=== PATIENT | female | born 1945 | race Hispanic/Latino ===

== ENCOUNTER 2017-08-12 03:28 | Emergency (ER) | payer MEDICARE ==
[~2017-08-12 03:28] MED LIST: ASPI-555 PO; CIPR-245 PO; GLYB5TAB8 PO; MECL12.585 PO; METF10004 PO; VALS80TA2 PO
[2017-08-12] MEDS ORDERED: ACETAMINOPHEN 325 MG TAB ONE (03:56)
[2017-08-12] MEDS ORDERED: LIDOCAINE 5% TOPICAL PATCH TP ONE (03:56)
[2017-08-12] MEDS ORDERED: OSELTAMIVIR PHOSPHATE 75 MG CAP ONE (03:57)
== END 2017-08-12 04:14 | disposition home or self-care (01) ==
LOC: EDH 03:28
DX: M54.31 Sciatica, right side (principal); J11.1 Influenza due to unidentified influenza virus with other respiratory manifestations; M19.90 Unspecified osteoarthritis, unspecified site; E11.9 Type 2 diabetes mellitus without complications; I10 Essential (primary) hypertension; Z98.890 Other specified postprocedural states

== ENCOUNTER 2018-07-21 09:31 | Emergency (ER) | payer MEDICARE ==
[~2018-07-21 09:31] MED LIST changes: +CANA1TAB2 PO; +CARV6.25 PO; +METF-446 PO; -METF10004 PO
[2018-07-21] MEDS ORDERED: ONDANSETRON 4 MG TABLET ONE (10:38)
[2018-07-21] MEDS ORDERED: HYDROCODONE/ACETAMINOPHEN 10/325 MG TAB ONE (10:39)
== END 2018-07-21 12:15 | disposition home or self-care (01) ==
LOC: EDH 09:31
DX: S00.83XA Contusion of other part of head, initial encounter (principal); S20.212A Contusion of left front wall of thorax, initial encounter; E11.9 Type 2 diabetes mellitus without complications; I10 Essential (primary) hypertension; Z88.6 Allergy status to analgesic agent; Z87.891 Personal history of nicotine dependence; W01.0XXA Fall on same level from slipping, tripping and stumbling without subsequent striking against object, initial encounter; Y93.01 Activity, walking, marching and hiking; Y92.89 Other specified places as the place of occurrence of the external cause; Y99.8 Other external cause status
CPT/HCPCS: 70450; 70486; 71101; 99284; Q0162

== ENCOUNTER 2020-06-19 05:54 | Day surgery (SDC) | payer MEDICARE ==
[~2020-06-19 05:54] MED LIST changes: -ASPI-555 PO; -CANA1TAB2 PO; -CARV6.25 PO; -CIPR-245 PO; +FURO20TA4 PO; -GLYB5TAB8 PO; +LOSA100T58 PO; -MECL12.585 PO; +NATE120T9 PO; +POTA-79 PO; -VALS80TA2 PO
[2020-06-19] MEDS ORDERED: SODIUM CHLORIDE 0.9% 1000ML 1,000 ML IV ONE (06:14)
[2020-06-19] MEDS ORDERED: PROPOFOL 10 MG/ML 20ML VIAL IV ONE (07:36)
[2020-06-19] MEDS ORDERED: LIDOCAINE HCL 1% 20 ML VIAL ONE (07:36)
[2020-06-19] MEDS ORDERED: MIDAZOLAM HCL 1 MG/ML 2ML VIAL ONE (07:36)
[2020-06-19 08:28] VITALS: BP 114/40
[2020-06-19 08:33] VITALS: BP 131/52
[2020-06-19 08:38] VITALS: BP 139/55
== END 2020-06-19 09:13 | disposition home or self-care (01) ==
LOC: ENDO 05:54 → DAH 05:54 → ENDO 09:13
PROVIDERS: ATTEND Internal Medicine Gastroenterology
DX: R13.10 Dysphagia, unspecified (principal); K21.00 Gastro-esophageal reflux disease with esophagitis, without bleeding; K29.70 Gastritis, unspecified, without bleeding; K44.9 Diaphragmatic hernia without obstruction or gangrene; G47.30 Sleep apnea, unspecified; I49.5 Sick sinus syndrome; E78.5 Hyperlipidemia, unspecified; E11.22 Type 2 diabetes mellitus with diabetic chronic kidney disease; N18.9 Chronic kidney disease, unspecified; F41.9 Anxiety disorder, unspecified; Z86.010 Personal history of colon polyps; Z95.0 Presence of cardiac pacemaker; G47.33 Obstructive sleep apnea (adult) (pediatric); Z90.49 Acquired absence of other specified parts of digestive tract; Z79.899 Other long term (current) drug therapy; Z20.828 Contact with and (suspected) exposure to other viral communicable diseases
CPT/HCPCS: 43239; 82948 ×2; 88305; 88342; 93005; A4221; A4222; A4223; A4606; A4620; A4657; A4663; C9803; J2250; J2704; J7030; U0003

== ENCOUNTER 2021-01-06 08:13 | Emergency (ER) | payer MEDICARE ==
[~2021-01-06] VITALS: Ht 162.6 cm; Wt 83.0 kg
[~2021-01-06 08:13] MED LIST changes: -POTA-79 PO
[2021-01-06 08:56] VITALS: BP 185/60
[2021-01-06] MEDS ORDERED: ONDANSETRON HCL 4 MG/2 ML VIAL IVP SCH (09:15)
[2021-01-06] MEDS ORDERED: MORPHINE 5 MG/ML VIAL (5MG OR GREATER DOSE) IM SCH (09:15)
[2021-01-06 09:45] LABS: BASOPHILS % (AUTO) 0.3 % (0.0-5.0); HEMATOCRIT 29.4 % (36-48); LYMPHOCYTES % (AUTO) 31.6 % (21.0-51.0); MEAN CORPUSCULAR HGB CONC 29.6 g/dL (32.0-36.0); MEAN CORPUSCULAR VOLUME 64.2 fL (79-99); MONOCYTES % (AUTO) 6.2 % (3.0-13.0); NEUTROPHILS % (AUTO) 60.3 % (40.0-77.0); PLATELET COUNT (AUTO) 267 K/uL (130-400); RED BLOOD CELL COUNT(AUTO) 4.58 MIL/uL (4.00-5.50); RED CELL DISTRIBUTION WIDTH 16.8 % (11.0-15.5); WHITE BLOOD COUNT (AUTO) 6.9 K/uL (4.8-10.8)
[2021-01-06 09:50] LABS: CREATININE 0.7 mg/dL (0.5-1.5); POTASSIUM 4.2 mmol/L (3.5-5.1)
[2021-01-06 09:56] VITALS: BP 184/98
[2021-01-06 09:59] LABS: ALBUMIN 3.6 g/dL (3.5-5.0); BILIRUBIN,TOTAL 0.4 mg/dL (0.2-1.0)
[2021-01-06 10:00] LABS: APPEARANCE,URINE Clear (CLEAR); BILIRUBIN,URINE Negative (NEGATIVE); COLOR,URINE Yellow (YELLOW); GLUCOSE, URINE (UA) >=1000 mg/dL (NEGATIVE); KETONES,URINE 15 mg/dL (NEGATIVE); LEUKOCYTE ESTERASE ,URINE Negative (NEGATIVE); NITRATE,URINE Negative (NEGATIVE); OCCULT BLOOD,URINE Negative (NEGATIVE); PROTEIN,URINE POS 1+ mg/dL (NEGATIVE); UROBILINOGEN,URINE 0.2 mg/dL (0.2-1.0)
[2021-01-06 10:25] VITALS: BP 140/74
[2021-01-06 10:29] LABS: RBC,URINE 0-1 /HPF (0-1)
[2021-01-06 10:30] LABS: BACTERIA,URINE Rare /HPF (None Seen); WBC,URINE 0-1 /HPF (0-1)
[2021-01-06 11:13] VITALS: BP 153/53
[2021-01-06 13:41] VITALS: BP 146/56
[2021-01-06] MEDS ORDERED: CYCL10 PO (14:01)
== END 2021-01-06 14:09 | disposition home or self-care (01) ==
LOC: EDH 08:13
DX: M47.814 Spondylosis without myelopathy or radiculopathy, thoracic region (principal); M54.6 Pain in thoracic spine; E11.65 Type 2 diabetes mellitus with hyperglycemia; E78.5 Hyperlipidemia, unspecified; I10 Essential (primary) hypertension; Z79.84 Long term (current) use of oral hypoglycemic drugs; E66.9 Obesity, unspecified; Z88.5 Allergy status to narcotic agent; Z95.0 Presence of cardiac pacemaker; Z79.899 Other long term (current) drug therapy
CPT/HCPCS: 36415; 71250; 80053; 81001; 83690; 84484; 85025; 85378; 93005; 96372; 96374; 99285; J2270; J2405

== ENCOUNTER → 2022-04-21 | Outpatient (CLI) | payer MEDICARE ==
[~2022-04-21] MED LIST changes: +CYCL10TA16 PO; -FURO20TA4 PO
[2022-04-21 12:31] LABS: BASOPHILS % (AUTO) 0.5 % (0.0-5.0); EOSINOPHILS % (AUTO) 2.2 % (0.0-8.0); HEMATOCRIT 29.5 % (36-48); LYMPHOCYTES % (AUTO) 48.2 % (21.0-51.0); MEAN CORPUSCULAR HEMOGLOBIN 17.8 pg (27.0-33.0); MEAN CORPUSCULAR HGB CONC 29.5 g/dL (32.0-36.0); MEAN CORPUSCULAR VOLUME 60.3 fL (79-99); MONOCYTES % (AUTO) 7.3 % (3.0-13.0); NEUTROPHILS % (AUTO) 41.4 % (40.0-77.0); PLATELET COUNT (AUTO) 299 K/uL (130-400); RED BLOOD CELL COUNT(AUTO) 4.89 MIL/uL (4.00-5.50); RED CELL DISTRIBUTION WIDTH 18.9 % (11.0-15.5); WHITE BLOOD COUNT (AUTO) 7.6 K/uL (4.8-10.8)
== END | disposition home or self-care (01) ==
LOC: LAB 10:11
PROVIDERS: ATTEND Physician Assistant
DX: I10 Essential (primary) hypertension (principal)
CPT/HCPCS: 36415; 85025

== ENCOUNTER → 2023-05-15 | Outpatient (CLI) | payer MEDICARE ==
[~2023-05-15] MED LIST changes: +IOHEXOL 350 MG/ML 100ML INFUS..BTL IV ONE; -LOSA100T58 PO; +LOSA100T59 PO
== END | disposition home or self-care (01) ==
LOC: RAH 08:03
PROVIDERS: ATTEND Family Medicine
DX: K44.9 Diaphragmatic hernia without obstruction or gangrene (principal); R10.9 Unspecified abdominal pain; M47.815 Spondylosis without myelopathy or radiculopathy, thoracolumbar region; I70.0 Atherosclerosis of aorta; N85.2 Hypertrophy of uterus
CPT/HCPCS: 74178; Q9967

== ENCOUNTER → 2024-02-01 | Outpatient (CLI) | payer MEDICARE ==
[~2024-02-01] MED LIST changes: -IOHEXOL 350 MG/ML 100ML INFUS..BTL IV ONE
[2024-02-01 12:12] LABS: BASOPHILS # (AUTO) 0.04 K/uL (0.00-0.20); BASOPHILS % (AUTO) 0.6 % (0.0-5.0); EOSINOPHILS # (AUTO) 0.07 K/uL (0.00-0.70); HEMATOCRIT 26.9 % (36-48); IMMATURE GRANULOCYTE ABSOLUTE 0.03 K/uL (0-1); LYMPHOCYTES # (AUTO) 2.3 K/uL (1.0-4.8); MEAN CORPUSCULAR HEMOGLOBIN 18.5 pg (27.0-33.0); MEAN CORPUSCULAR HGB CONC 29.4 g/dL (32.0-36.0); MEAN CORPUSCULAR VOLUME 62.9 fL (79-99); MONOCYTES # (AUTO) 0.4 K/uL (0.1-1.0); MONOCYTES % (AUTO) 5.2 % (3.0-13.0); NEUTROPHILS # (AUTO) 4.2 K/uL (1.8-7.7); NEUTROPHILS % (AUTO) 59.8 % (40.0-77.0); PLATELET COUNT (AUTO) 307 K/uL (130-400); RED BLOOD CELL COUNT(AUTO) 4.28 MIL/uL (4.00-5.50); WHITE BLOOD COUNT (AUTO) 7.1 K/uL (4.8-10.8)
[2024-02-01 12:21] LABS: CREATININE 1.2 mg/dL (0.5-1.0); POTASSIUM 4.7 mmol/L (3.5-5.1)
== END | disposition home or self-care (01) ==
LOC: LAB 09:34
PROVIDERS: ATTEND Physician Assistant
DX: I10 Essential (primary) hypertension (principal)
CPT/HCPCS: 36415; 80048; 85025

== ENCOUNTER 2025-01-04 14:39 | Observation (INO) | payer MEDICARE ==
[~2025-01-04] VITALS: Ht 152.4 cm; Wt 75.6 kg
--- NOTE | 2025-01-04 15:09 | ERN ---
ED Note History of Present Illness Stated Complaint: HEART PAP Chief Complaint: Palpitations Time Seen by MD: 14:42 Dictation: PATIENT IS A 79-YEAR-OLD FEMALE COMING IN TODAY WITH COMPLAINTS OF PALPITATIONS ONSET LAST NIGHT WHILE SHE WAS ASLEEP. SAID IT WOKE HER UP. SHE STATES SHE HAS A PACEMAKER WERE THE BATTERY IS GETTING READY TO RUN OUT AND WE WILL NEED REPLACING. SHE IS A PATIENT OF DR. CHAUDHARY AND WAS TOLD TO COME TO THE EMERGENCY ROOM. CHEST PAIN AT THIS TIME NO BACK PAIN NO SOB. Allergies: Coded Allergies: codeine (Unverified Allergy, Mild, UNKNOWN, 03/07/14) PT STATES OF DIARRHEA WITH CODEINE SULFATE Home Meds Active Scripts Cyclobenzaprine HCl (Flexeril) 10 Mg Tab, 5 MG PO BID for BACK PAIN for 7 Days, #15 TAB Prov:ANISH LIVE MD 01/06/21 Metformin HCl (Metformin HCl) 1,000 Mg Tablet, 1000 MG PO BID, #60 TAB Prov:CHUCHO BRIONES MD 01/13/15 Reported Medications Losartan Potassium (Losartan Potassium) 100 Mg Tablet, 100 MG PO DAILY, TAB 06/18/20 Nateglinide (Nateglinide) 120 Mg Tablet, 120 MG PO TID, TAB 06/18/20 Past Medical History Past Medical History: Arthritis, Diabetes-Type II, Hypertension Additional Past Medical Hx: THELASSEMIA Surgical History: Cholecystectomy Surgical History Other: HERNIA REPAIR, History: Not Applicable RN Note Reviewed/Agreed w/PFSH: Yes Review of System Dictation CONSTITUTIONAL: NEGATIVE EXCEPT FOR HPI HEAD/FACE: NEGATIVE EXCEPT FOR HPI EENT: NEGATIVE EXCEPT FOR HPI RESPIRATORY: NEGATIVE EXCEPT FOR HPI PALPITATIONS GASTROINTESTINAL/ABDOMINAL: NEGATIVE EXCEPT FOR HPI GENITOURINARY: NEGATIVE EXCEPT FOR HPI MUSCULOSKELETAL: NEGATIVE EXCEPT FOR HPI INTEGUMENTARY: NEGATIVE EXCEPT FOR HPI NEUROLOGICAL/PSYCH: NEGATIVE EXCEPT FOR HPI HEMATOLOGIC/LYMPHATIC: NEGATIVE EXCEPT FOR HPI ALL SYSTEMS NEGATIVE, EXCEPT NOTED ABOVE. 13 POINT REVIEW OF SYSTEMS ASSESSED AND ALL NEGATIVE EXCEPT FOR ABOVE. Initial Vital Sign VS Vital Signs Date Time Temp Pulse Resp B/P (MAP) Pulse Ox O2 Delivery O2 Flow Rate FiO2 01/04/25 15:07 98.6 83 16 183/80 99 Room Air 01/04/25 16:58 0 21 Physical Exam Dictation VITAL SIGNS REVIEWED GENERAL APPEARANCE: ALERT, ORIENTED X 3, NO ACUTE DISTRESS, WELL DEVELOPED, NOURISHED. OBESE HEAD AND FACE: NON-TRAUMATIC. EYES: PERRL, PINK CONJUNCTIVAS, EYELID NO TRAUMA, ANTERIOR CHAMBER WITH ARCUS SENILIS. EARS: PINNAS INTACT AND NO SIGNS OF TRAUMA OR ERYTHEMA EAR CANALS CLEAR AND NO DISCHARGE TM NO ERYTHEMA NOSE: NO DISCHARGE, NO BLEEDING. OROPHARYNX: MOUTH NORMAL, TONGUE PINK, PHARYNX CLEAR,NO ERYTHEMA, TONSILS NO EXUDATES, NO ABSCESSES NOTED, MUCOUS MEMBRANE MOIST NECK: SUPPLE, NON-TENDER, NO THYROMEGALY, NO MASSES, NO JVD, NO BRUITS BREAST:DEFERRED CHEST:NO TENDERNESS, NO CREPITUS, NO PARADOXICAL MOVEMENT, NO RETRACTIONS LUNGS:CLEAR, WELL-VENTILATED, SYMMETRIC, NO RALES, NO WHEEZING, NO RHONCHI, NO STRIDOR, GOOD BREATH SOUNDS BILATERALLY HEART: REGULAR RATE, REGULAR RHYTHM, NO MURMUR, NO GALLOPS VASCULAR: TRACE PERIPHERAL EDEMA, ABDOMEN: SOFT, POSITIVE BOWEL SOUNDS, NONDISTENDED, NO GUARDING, NONTENDER, NO REBOUND, NO MASSES NO HEPATOMEGALY, NO SPLENOMEGALY, NO VALDES'S SIGN, NO HERNIAS. RECTAL: DEFERRED GENITAL: DEFERRED NEUROLOGICAL: NORMAL SPEECH, MOTOR FUNCTION INTACT, SENSORY FUNCTION INTACT MUSCULOSKELETAL: NECK NONTENDER, FULL RANGE OF MOTION, BACK NONTENDER, FULL RANGE OF MOTION, EXTREMITIES: NONTENDER, FULL RANGE OF MOTION SKIN: COLOR PINK, DRY, NO TURGOR, NO RASH, NO LACERATIONS, NO ABRASIONS, NO CONTUSIONS. LYMPHATIC: DEFERRED Results (Laboratory/Radiology) Laboratory/Radiology Laboratory Tests Test 01/04/25 15:32 White Blood Count 6.8 K/uL (4.8-10.8) Red Blood Count 4.65 MIL/uL (4.00-5.50) Hemoglobin 8.6 g/dL (12.0-16.0) L Hematocrit 29.0 % (36-48) L Mean Corpuscular Volume 62.4 fL (79-99) L Mean Corpuscular Hemoglobin 18.5 pg (27.0-33.0) L Mean Corpuscular Hemoglobin Concent 29.7 g/dL (32.0-36.0) L Red Cell Distribution Width 16.1 % (11.0-15.5) H Platelet Count 277 K/uL (130-400) Mean Platelet Volume 10.1 fL (7.5-10.5) Immature Granulocyte % (Auto) 0.3 % (0-1) Neutrophils (%) (Auto) 49.0 % (40.0-77.0) Lymphocytes (%) (Auto) 42.8 % (21.0-51.0) Monocytes (%) (Auto) 6.6 % (3.0-13.0) Eosinophils (%) (Auto) 0.9 % (0.0-8.0) Basophils (%) (Auto) 0.4 % (0.0-5.0) Neutrophils # (Auto) 3.4 K/uL (1.8-7.7) Lymphocytes # (Auto) 2.9 K/uL (1.0-4.8) Monocytes # (Auto) 0.5 K/uL (0.1-1.0) Eosinophils # (Auto) 0.06 K/uL (0.00-0.70) Basophils # (Auto) 0.03 K/uL (0.00-0.20) Absolute Immature Granulocyte (auto 0.02 K/uL (0-1) Nucleated Red Blood Cells 0.0 % (0.0-0.19) Red Blood Cell Morphology See comments Sodium Level 137 mmol/L (136-145) Potassium Level 3.7 mmol/L (3.5-5.1) Chloride Level 101 mmol/L (101-111) Carbon Dioxide Level 28 mmol/L (21-32) Blood Urea Nitrogen 31 mg/dL (7-18) H Creatinine 1.1 mg/dL (0.5-1.0) H Glomerular Filtration Rate Calc 50 mL/min (>90) Random Glucose 268 mg/dL (70-105) H Total Calcium 9.3 mg/dL (8.5-10.1) Magnesium Level 1.40 mg/dL (1.80-2.40) L Troponin I High Sensitivity 45 ng/L (4-50) B-Type Natriuretic Peptide 787 pg/mL (0-100) H Labs Reviewed?: Yes EKG Comment: EKG SINUS RHYTHM/HEART RATE 80/T-WAVE INVERSION V4 V1 AXIS NORMAL ED Course ED Course Orders Procedure Category Date Status Time Cbc With Differential LAB 01/04/25 Complete 15:06 B-Type Natriuretic LAB 01/04/25 Complete Peptide 15:06 Chest 1vw RAD 01/04/25 Resulted 15:06 12 Lead Ekg Tracing- EKG 01/04/25 Complete Technical 15:06 Magnesium LAB 01/04/25 Complete 15:06 Troponin I High LAB 01/04/25 Complete Sensitivity 15:06 Basic Metabolic Panel LAB 01/04/25 Complete 15:06 Pacemaker CPOE 01/04/25 Transmitted Interrogation (Er) 15:06 Magnesium 2gm Premix PHA 01/04/25 In Process 50ml (Magnesium 2gm 16:30 Current Medications Medications (Trade) Dose Ordered Sig/Amanda Route PRN Reason Start Time Stop Time Status Last Admin Dose Admin Magnesium Sulfate 50 ml @ 0 mls/hr PROTOCOL IV 01/04/25 16:30 02/03/25 16:29 01/04/25 16:43 Vital Signs Date Time Temp Pulse Resp B/P (MAP) Pulse Ox O2 Delivery O2 Flow Rate FiO2 01/04/25 16:58 77 17 157/64 98 Room Air* 0 21 01/04/25 15:07 98.6 83 16 183/80 99 Room Air 1725/PATIENT HAS HYPOMAGNESEMIA ACUTE KIDNEY INJURY, UNCONTROLLED DIABETES. SHE HAS NOT HAVE ANY CHEST PAINS OR PALPITATIONS AT THIS TIME. WE HAVE ALREADY CONTACTED OFFICE FOR INTERROGATION OF HER PACEMAKER. WE WILL PLACE PATIENT IN THE HOSPITAL FOR FURTHER EVALUATION AND CARDIAC WORKUP. PATIENT AGREES HEART Score Response (Comments) Value EKG: Repolarization changes 1 Age: > 65yrs (+2) 2 Risk Factors: 3+ risk factors (+2) 2 Initial Troponin: Normal limit (0) 0 Total 5 Medical Decision Making MDM MDM: DIFFERENTIAL DIAGNOSIS PACEMAKER BATTERY FAILURE, ACS/AMI/CHF/ELECTROLYTE IMBALANCE/DEHYDRATION RATIONALE: TESTS CONSIDERED AND ORDERED SECONDARY TO SHARED DECISION MAKING IN CLUDE: LABS, ECG AND RADIOLOGY PREVIOUS OUTSIDE RECORDS REVIEWED: OLD ER VISITS. RISK OF COMPLICATION AND/OR MORBIDITY OR MORTALITY OF PATIENT MANAGEMENT: [id number] MEDICATIONS-PER MEDICATION RECONCILIATION NEED FOR HOSPITALIZATION: PATIENT DOES MEET CRITERIA FOR HOSPITALIZATION. PATIENT WILL BE ADMITTED FOR TIFFANI, UNCONTROLLED DIABETES PALPITATIONS AND HIGH- RISK CHEST PAIN NEED FOR EMERGENCY MAJOR/MINOR SURGERY: NO THERE ARE NO SOCIAL CONCERNS WITH THIS PATIENT. PRESCRIPTION DRUG MANAGEMENT PRESCRIPTIONS WILL INCLUDE SYMPTOMATIC CARE PATIENT'S PRIOR EXTERNAL MEDICAL RECORDS FROM OTHER ER VISITS WERE REVIEWED BY ME INDICATED. PRIOR TESTING AND RESULTS FROM PREVIOUS VISITS WERE REVIEWED. PRIOR TESTS WERE TAKEN INTO ACCOUNT WITH MEDICAL DECISION MAKING AND RESOURCE UTILIZATION, INDEPENDENT HISTORIAN/HISTORIANS WERE USED TO OBTAIN COMPLETE MEDICAL HISTORY. I INDEPENDENTLY INTERPRETED THE TEST THAT WERE PERFORMED, RESULTS WERE REVIEWED BY ME AND CONSIDERED FINDINGS ON RADIOLOGY IF ORDERED. MEDICAL MANAGEMENT AND EXAMINATION INTERPRETATION DISCUSSIONS WERE HAD BY ME WITH OTHER QUALIFIED HEALTHCARE PROFESSIONALS INDICATED FOR THE PATIENT'S CARE. DX & DISP Disposition: Inpatient Decision to Admit Time: 17:30 Departure Impression: Primary Impression: Palpitations Additional Impressions: [id number]-[id number] kidney injury, Fluid overload, Hypomagnesemia, Pacemaker complications Condition: Stable Referrals: FRANCES HENNING MD (PCP) Time of Disposition: 17:30 I have reviewed the case, and I agree with, Diagnosis and Plan MAGNO MALDONADO NP Jan 04, 2025 15:09
[2025-01-04 15:38] LABS: BASOPHILS # (AUTO) 0.03 K/uL (0.00-0.20); BASOPHILS % (AUTO) 0.4 % (0.0-5.0); EOSINOPHILS # (AUTO) 0.06 K/uL (0.00-0.70); EOSINOPHILS % (AUTO) 0.9 % (0.0-8.0); IMMATURE GRANULOCYTE ABSOLUTE 0.02 K/uL (0-1); LYMPHOCYTES # (AUTO) 2.9 K/uL (1.0-4.8); LYMPHOCYTES % (AUTO) 42.8 % (21.0-51.0); MEAN CORPUSCULAR HEMOGLOBIN 18.5 pg (27.0-33.0); MEAN CORPUSCULAR HGB CONC 29.7 g/dL (32.0-36.0); MEAN CORPUSCULAR VOLUME 62.4 fL (79-99); MONOCYTES # (AUTO) 0.5 K/uL (0.1-1.0); MONOCYTES % (AUTO) 6.6 % (3.0-13.0); NEUTROPHILS # (AUTO) 3.4 K/uL (1.8-7.7); PLATELET COUNT (AUTO) 277 K/uL (130-400); RED BLOOD CELL COUNT(AUTO) 4.65 MIL/uL (4.00-5.50); RED CELL DISTRIBUTION WIDTH 16.1 % (11.0-15.5); WHITE BLOOD COUNT (AUTO) 6.8 K/uL (4.8-10.8)
--- NOTE | 2025-01-04 15:50 | EKG ---
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
--- NOTE | 2025-01-04 15:53 | HMCIMG ---
CHEST 1VW REASON: SHORTNESS COMPARISON: 01/06/2021 FINDINGS: Single view of the chest was obtained. Lungs are clear. Heart size is normal. There is no pulmonary vascular congestion. Mediastinum and bony thorax appear unremarkable. There is a bipolar pacemaker, unchanged. IMPRESSION: 1. No acute finding, no change.
[2025-01-04 15:55] LABS: CREATININE 1.1 mg/dL (0.5-1.0); MAGNESIUM 1.4 mg/dL (1.80-2.40); POTASSIUM 3.7 mmol/L (3.5-5.1)
--- NOTE | 2025-01-04 16:10 | NUR ---
AT 1610 CALLED [facility] AND SPOKE TO LISA TO REQUEST INTEROGATION OF THE DEVICE. PER LISA, SHE WILL PAGE MURIEL SEE PENDING REP TO EVAL.
--- NOTE | 2025-01-04 16:19 | NUR ---
SPOKE TO CAROLE SEE AND HE STATED THAT THEY DO NOT HAVE ANY REPS IN THE [place], ADVISED REP THAT I WOULD CALL HEART CLINIC TO INFORM AND SEE WHAT OTHER RECOMMENDATION ARE NEEDED AT THIS TIME.
[2025-01-04 16:22] LABS: B-TYPE NATRIURETIC PEPTIDE 787 pg/mL (0-100)
[2025-01-04] MEDS: MAGNESIUM 2GM PREMIX 50ML 50 ML IV SCH (16:43)
--- NOTE | 2025-01-04 16:55 | NUR ---
CALLED DOCTOR [facility] OFFICE SPOKE TO BENY SMITH AND SHE INDICATED SHE ADVISED DOCTOR MCKEON AND SHE ATTEMPTED TO NOTIFY THE LOCAL REP THAT COMES TO INTERROGRATE HOWEVER THEY ARE UNABLE TO MAKE IT AT THIS TIME.
--- NOTE | 2025-01-04 16:57 | NUR ---
PENDING TO SEE WHAT FURTHER EVALUATION NEEDS TO BE MADE
--- NOTE | 2025-01-04 18:36 | HP ---
[facility] HISTORY AND PHYSICAL Date of Service: Jan 04, 2025 Time of Service: 18:36 FRANCES HENNING MD (PCP) Attending/supervising physician: Dr. Hope and Dr. Ángel De Jesus HISTORY OF PRESENT ILLNESS: Mrs. Villegas is a 79-year-old female with history of DM type 2, HTN, Arthritis, thalassemia who presented to [facility] for evaluation of palpitations onset last night while she was asleep. The patient reported that she has a pacemaker that is due for battery replacement. She is patient of Dr. Goetz and was told to come to the emergency room. On arrival to ED the patient denied chest pain, back pain, shortness of breath, any other pain, problem or concern. EKG: Sinus rhythm, heart rate 80, nonspecific T abnormalities, diffuse leads. Chest x-ray: No acute finding. Troponin WNL, BNP [address] Nieto's office for interrogation of her pacemaker. In ED the patient received magnesium. ED provider request patient be admitted with a diagnosis of palpitation, acute on chronic kidney injury, fluid overload, hypomagnesemia, pacemaker complications for further evaluation and cardiac workup. I assessed the patient in ED 5. No family member at bedside. Patient reports she has not seen her PCP in person for a while because of fear of COVID. Patient reports that she calls her PCP when she needs something. I informed the patient of labs, diagnostics, and plan of care. The patient had multiple questions. The patient is slow to understand and forgetful. I repeated information multiple times already provided. She verbalized understanding and is in agreement with the plan. Plan and assessment are listed below. REVIEW OF SYSTEMS 12-point ROS reviewed with patient. All pertinent positives mentioned above. Otherwise negative, noncontributory, non-pertinent. PAST MEDICAL HISTORY: As mentioned above PAST SURGICAL HISTORY: Cholecystectomy Hernia repair PAST SOCIAL HISTORY: Patient denied: Alcohol, tobacco, illicit drug use FAMILY HISTORY: Lives with family Coded Allergies: codeine (Unverified Allergy, Mild, UNKNOWN, 03/07/14) PT STATES OF DIARRHEA WITH CODEINE SULFATE PHYSICAL EXAM GENERAL APPEARANCE: The patient is awake, alert, and oriented, in no acute cardiopulmonary distress. NEUROLOGICAL: Cranial nerves II-XII grossly intact. Motor is 5/5 in bilateral upper and lower extremities proximal to distal. No sensory deficits. HEENT: Face is symmetric. Pupils are equal and reactive. Extraocular movements are intact. NECK: Supple. No JVD. No thyromegaly. No submental, submandibular, pre-/postauricular, occipital or supraclavicular lymphadenopathy. CHEST: Normal chest expansion. No Telemetry. LUNGS: Absence of any rales, rhonchi or any wheezing. CARDIOVASCULAR: Regular. S1 and S2 normal. No appreciable rubs, murmurs or gallops. ABDOMEN: Soft, nontender, and nondistended. There is no rebound, voluntary guarding, or rigidity. : Deferred. No Adam. EXTREMITIES: Non-edematous and not cyanotic. No clubbing. Good capillary refill. SKIN: No skin breakdown. Vital Sign (Last 24 Hours) 01/04/25 18:05 Temp 98.4 Pulse 78 Resp 17 B/P (MAP) 135/67 Pulse Ox 95 O2 Delivery Room Air* O2 Flow Rate 0 FiO2 21 LABS: Laboratory: Test 01/04/25 15:32 Range/Units White Blood Count 6.8 4.8-10.8 K/uL Red Blood Count 4.65 4.00-5.50 MIL/uL Hemoglobin 8.6 L 12.0-16.0 g/dL Hematocrit 29.0 L 36-48 % Mean Corpuscular Volume 62.4 L 79-99 fL Mean Corpuscular Hemoglobin 18.5 L 27.0-33.0 pg Mean Corpuscular Hemoglobin Concent 29.7 L 32.0-36.0 g/dL Red Cell Distribution Width 16.1 H 11.0-15.5 % Platelet Count 277 130-400 K/uL Mean Platelet Volume 10.1 7.5-10.5 fL Immature Granulocyte % (Auto) 0.3 0-1 % Neutrophils (%) (Auto) 49.0 40.0-77.0 % Lymphocytes (%) (Auto) 42.8 21.0-51.0 % Monocytes (%) (Auto) 6.6 3.0-13.0 % Eosinophils (%) (Auto) 0.9 0.0-8.0 % Basophils (%) (Auto) 0.4 0.0-5.0 % Neutrophils # (Auto) 3.4 1.8-7.7 K/uL Lymphocytes # (Auto) 2.9 1.0-4.8 K/uL Monocytes # (Auto) 0.5 0.1-1.0 K/uL Eosinophils # (Auto) 0.06 0.00-0.70 K/uL Basophils # (Auto) 0.03 0.00-0.20 K/uL Absolute Immature Granulocyte (auto 0.02 0-1 K/uL Nucleated Red Blood Cells 0.0 0.0-0.19 % Red Blood Cell Morphology See comments Sodium Level 137 136-145 mmol/L Potassium Level 3.7 3.5-5.1 mmol/L Chloride Level 101 101-111 mmol/L Carbon Dioxide Level 28 21-32 mmol/L Blood Urea Nitrogen 31 H 7-18 mg/dL Creatinine 1.1 H 0.5-1.0 mg/dL Glomerular Filtration Rate Calc 50 >90 mL/min Random Glucose 268 H 70-105 mg/dL Total Calcium 9.3 8.5-10.1 mg/dL Magnesium Level 1.40 L 1.80-2.40 mg/dL Troponin I High Sensitivity 45 4-50 ng/L B-Type Natriuretic Peptide 787 H 0-100 pg/mL Current Medications Medications (Trade) Dose Ordered Sig/Amanda Route PRN Reason Start Time Stop Time Status Last Admin Dose Admin Magnesium Sulfate 50 ml @ 0 mls/hr PROTOCOL IV 01/04/25 16:30 02/03/25 16:29 01/04/25 16:43 50 MLS/HR DIAGNOSTICS / RADIOLOGY: [ ] ASSESSMENT: Palpitations, POA Hypomagnesemia, POA Pacemaker in need of battery change, POA Acute kidney injury, GFR 50 Acute on chronic kidney disease Fluid overload, BNP 787 Anemia of chronic disease Diabetes mellitus with hyperglycemia Hypertension Arthritis Octogenarian PLAN: -Admit to medical floor with continuous telemetry monitoring. -Pending pacemaker to be interrogated by [employer]. -ED consulted with Dr. Nieto's clinic. -consult Dr. Nieto a.m. -Resume patient's home medication Lasix 40 mg IV and losartan 100 mg p.o. daily. -Reconcile remaining medications once available. -Troponin levels and EKG series. -2D echo in a.m. with heart clinic to read. -p.r.n. medications for: Pain management, nausea, vomiting, constipation, hypertension, fever. -Oxygen supplement as needed to maintain oxygen levels equal to or greater than 92% -Nitroglycerin sublingual as needed chest pain -Atorvastatin 40 mg PO daily. -Blood pressure checks every 4 hours and as needed. -Glucometer checks before meals and at bedtime with insulin regular sliding scale. -AM labs. -Monitor renal and liver function. -Monitor electrolytes and treat accordingly. -DVT and GI prophylaxis: SCDs and Pepcid ADVANCED CARE PLANNING 1. Which of the following were discussed? Hospice Care - No Therapeutic options - Yes Advance Directives - Yes Other discussions - 2. Discussed with who? Patient 3. Voluntary nature of this service was explained to the patient? Yes 4. Amount of time spent - __ Over 35 minutes 5. Reviewed by Physician? (if this service was performed by NPP) Yes ATTESTATION BY PHYSICIAN I have seen and examined the patient. I reviewed the documentation, medical decision making, and treatment plan as noted by the mid-level provider above. I agree with the findings and plan of care. BRANDI AYON [facility] Jan 04, 2025 18:36
[2025-01-04 20:25] LABS: APPEARANCE,URINE CLEAR (CLEAR); BILIRUBIN,URINE NEGATIVE (NEGATIVE); COLOR,URINE LIGHT-YELLOW (YELLOW); GLUCOSE, URINE (UA) 300 mg/dL (NEGATIVE); KETONES,URINE NEGATIVE (NEGATIVE); LEUKOCYTE ESTERASE ,URINE NEGATIVE Leu/uL (NEGATIVE); NITRATE,URINE NEGATIVE (NEGATIVE); OCCULT BLOOD,URINE NEGATIVE (NEGATIVE); PROTEIN,URINE 30 mg/dL (NEGATIVE); UROBILINOGEN,URINE 0.2 mg/dL (0.2-1.0)
[2025-01-04 20:26] LABS: ADD UA MICROSCOPIC YES
[2025-01-04 20:37] LABS: MUCUS,URINE RARE LPF (None Seen); RBC,URINE 0-1 /HPF (0-1); SQUAMOUS EPITHELIAL CELL,UR RARE /HPF (0-2); TRANSITIONAL EPI CELLS,URINE RARE /HPF (None Seen); WBC,URINE 0-1 /HPF (0-1)
[2025-01-04] MEDS ORDERED: IpraTROPium 0.5 MG/2.5 ML INH IH PRN (21:00)
[2025-01-04] MEDS ORDERED: doCUSate SODIUM 100 MG CAP PO PRN (21:00)
[2025-01-04] MEDS ORDERED: acetaMINOPHEN 325 MG TAB PO PRN (21:00)
[2025-01-04] MEDS ORDERED: LACTULOSE 20 GM/30 ML UDCUP PO PRN (21:00)
[2025-01-04] MEDS ORDERED: LAbetaLOL 20MG SYG IV PRN (21:00)
[2025-01-04] MEDS ORDERED: TEMAZepam 15 MG CAPSULE PO PRN (21:00)
[2025-01-04] MEDS ORDERED: ondanSETRON 4MG INJ IVP PRN (21:00)
[2025-01-04] MEDS ORDERED: acetaMINOPHEN 650 MG SUPPOSITORY RC PRN (21:00)
[2025-01-04] MEDS: FAMOTIDINE 20MG TAB PO SCH (21:45)
[2025-01-04 21:52] VITALS: O2SAT 98
[2025-01-04] MEDS: INSULIN humuLIN R 100 UNIT/ML 3ML SQ SCH (22:01)
[2025-01-05] VITALS (8 sets, daily range): BP systolic 142–167; BP diastolic 60–79; PULSE 72–80; RESP 18–23; TEMP 97.4–98.3; O2SAT 96–98
[2025-01-05] MEDS ORDERED: diazePAM 5 MG/ML 2 ML SYG IVP ONE (00:30)
--- NOTE | 2025-01-05 01:07 | NUR ---
Home meds pending, Family to bring in the morning.
--- NOTE | 2025-01-05 01:35 | NUR ---
admit note admit to room 421 via stretcher from er, patient awake, alert, ox3, no sob, no c /o pain at this time, no family at bedside, did not bring home medications, per patient called family to bring medications earlier, teach plan of care and expected outcomes , patient verbalizes understanding via teach back
[2025-01-05 05:27] LABS: HEMATOCRIT 24.6 % (36-48); MEAN CORPUSCULAR HEMOGLOBIN 18.6 pg (27.0-33.0); MEAN CORPUSCULAR HGB CONC 30.9 g/dL (32.0-36.0); MEAN CORPUSCULAR VOLUME 60.3 fL (79-99); RED BLOOD CELL COUNT(AUTO) 4.08 MIL/uL (4.00-5.50); RED CELL DISTRIBUTION WIDTH 15.7 % (11.0-15.5); WHITE BLOOD COUNT (AUTO) 7.3 K/uL (4.8-10.8)
[2025-01-05 05:51] LABS: CREATININE 0.9 mg/dL (0.5-1.0); MAGNESIUM 1.8 mg/dL (1.80-2.40); PHOSPHORUS 3.5 mg/dL (2.5-4.9); POTASSIUM 3.6 mmol/L (3.5-5.1); THYROID STIMULATING HORMONE 1.46 uIU/mL (0.36-3.74)
[2025-01-05] MEDS ORDERED: GLUCAGON 1MG KIT 1 MG ML IM PRN (07:00)
[2025-01-05] MEDS ORDERED: PoTASSium chloRIDE 10MEQ/100ML 100 ML IV PRN (07:00)
[2025-01-05] MEDS ORDERED: DEXTROSE 50%-WATER 50 ML DISP.SYRIN IV PRN (07:00)
[2025-01-05] MEDS: furoSEMIDE 40MG VIAL IV SCH (09:00)
--- NOTE | 2025-01-05 09:43 | CONS ---
[facility] CARDIOLOGY CONSULTATION REPORT Cardiology consultation note dictated for Sukhwinder Kay MD Primary field tax auditor: Ramírez Hensley MD Date Patient Seen: Jan 05, 2025 Requesting Physician: LARRY Pressley Reason for Consultation: Palpitations, pacemaker battery change out History of Present Illness: This is an 79-year-old female with a past medical history of hypertension, agustín betes mellitus type 2 with nephropathy, history of thalassemia minor, normal coronaries via coronary angiogram in 2014, intolerance to beta rj therapy, sick sinus syndrome s/p dual-chamber pacemaker inserted on 01/12/2015, 2D Echo on 06/06/2021 with an EF of 65-70%, and a large hiatal hernia who presented to the ED with complaints of palpitations. Cardiology has been consulted for palpitations and pacemaker reaching DREA. Yesterday at approximately 2:30 a.m. in the morning, the patient awoke with a pu lsating sensation to the left upper chest. She denied accompanying symptoms or aggravating factors. Episodes have been intermittent lasting for up to a minute and continue even until this morning. Of note, the left lateral chest is tender to palpation but she denies that this is similar to the pulsations she is feeling. EKG demonstrated NSR with a hr of 80bpm nonspecific T-wave abnormalities. She reports exertional fatigue and shortness of breath which is an ongoing issue for at least the last 9 to 12 months. She adds she spoke to Dr. Nieto on Thursday and told her to come to the hospital for a battery change out on her device. Per last EP visit on 12/13/2024, the patient had historically been atrial paced from 7-39% and up to 40% in the RV. She was found to be ventricular pacing in the 70s due to her device's automatic settings once it reached DREA. Her atrial lead impedence had been up trending from 1395 in January 2024 up to 2786 on her most recent device interrogation on 12/06/2024. The threshold was 2.75 V compared to 1.75 V in December 2023. There were no arrhythmia episodes noted. She had an outpatient Echocardiogram on 12/14/2024 but it is not available to review. It was ordered to assess her LV function due to RV pacing of 40%. If there was a decline in her ejection fraction to less than 50% the patient would likely need a biventricular pacemaker upgrade. Past Medical History: As per HPI and summarized Past Surgical History: Hernia repair Cholecystectomy Family History: Noncontributory Social History: The patient lives with family. Habits: The patient denies alcohol, tobacco, or illicit drug use. Home Meds: Losartan 100 mg daily Metformin 1000 mg b.i.d. Nateglinide 120 mg before meals t.i.d. Current Meds: Current Medications Medications Dose Ordered Sig/Amanda Start Time Stop Time Status Last Admin Magnesium Sulfate 50 ml @ 0 mls/hr PROTOCOL 01/04/25 16:30 02/03/25 16:29 01/05/25 06:13 Ipratropium [place] 0.5 mg [id number] PRN 01/04/25 21:00 02/03/25 20:59 Famotidine 20 mg Q48H 01/04/25 21:00 02/03/25 20:59 01/04/25 21:45 Acetaminophen 650 mg Q6H PRN 01/04/25 21:00 02/03/25 20:59 Acetaminophen 650 mg Q6H PRN 01/04/25 21:00 02/03/25 20:59 Lactulose 20 gm Q6H PRN 01/04/25 21:00 02/03/25 20:59 Docusate Sodium 100 mg BID PRN 01/04/25 21:00 02/03/25 20:59 Temazepam 15 mg HS PRN 01/04/25 21:00 02/03/25 20:59 Ondansetron HCl 4 mg Q6H PRN 01/04/25 21:00 02/03/25 20:59 Labetalol HCl 10 mg Q2H PRN 01/04/25 21:00 02/03/25 20:59 Insulin Human Regular INSULIN SLIDING SCAL... ACHS 01/04/25 21:00 02/03/25 20:59 01/04/25 22:01 Furosemide 40 mg DAILY 01/05/25 09:00 02/04/25 08:59 Losartan Potassium 100 mg DAILY 01/05/25 09:00 02/04/25 08:59 Potassium Chloride 100 ml @ 100 mls/hr AD PRN 01/05/25 07:00 02/04/25 06:59 Dextrose 50 ml AD PRN 01/05/25 07:00 02/04/25 06:59 Glucagon 1 mg AD PRN 01/05/25 07:00 02/04/25 06:59 Atorvastatin Calcium 40 mg HS 01/05/25 21:00 02/04/25 20:59 Review of Systems: CONST: No fever, fatigue, or weight changes. EYES: No recent vision problems. ENT: No congestion, ear pain, or sore throat. C/V: No chest pain, palpitations, or edema. RESP: No cough, congestion, wheezing or shortness of breath. GI: No abdominal pain, nausea, vomiting, constipation, or diarrhea. : No incontinence or dysuria. SKIN: No rash. NEURO: No headache, focal numbness or weakness, dizziness, or seizures. PSYCH: No depression or anxiety. HEME: No abnormal bruising or bleeding. LYMPH: No swollen glands. Physical Examination: GENERAL: No acute distress. HEAD: Normal with no signs of head trauma. EYES: PERRLA, EOMI, conjunctiva and sclera normal. ENT: Hearing grossly intact, normal oropharynx. NECK: Supple without JVD. There is no tenderness, lymphadenopathy, or masses. No thyromegaly. Normal carotid upstrokes without bruits. LUNGS: Clear breath sounds bilaterally. No wheezes, or rhonchi. HEART: Normal rate and rhythm. Normal S1 and S2 without murmurs, gallop or rub. VASC: Peripheral pulses +2 bilaterally. ABD: Bowel sounds normal, soft, nontender, no masses, no organomegaly. No audible bruits. : Not examined LYMPH: No lymphadenopathy noted. EXT: No clubbing, cyanosis or edema. SKIN: No rashes or lesions noted. NEURO: Awake, alert, and oriented x3. Poor memory. Vital Signs (last 8hr) Date Time Temp Pulse Resp B/P (MAP) Pulse Ox O2 Delivery O2 Flow Rate FiO2 01/05/25 08:08 98.2 73 18 160/76 96 Room Air 01/05/25 06:32 72 18 N/A Room Air 21 01/05/25 04:00 98.1 72 20 159/74 93 Room Air 01/05/25 01:35 Room Air* 0 21 01/05/25 01:25 98.1 79 20 167/79 99 Room Air Laboratory: Hematology Labs: Test 01/05/25 04:53 01/04/25 15:32 Range/Units White Blood Count 7.3 4.8-10.8 K/uL Red Blood Count 4.08 4.00-5.50 MIL/uL Hemoglobin 7.6 L 12.0-16.0 g/dL Hematocrit 24.6 L 36-48 % Mean Corpuscular Volume 60.3 L 79-99 fL Mean Corpuscular Hemoglobin 18.6 L 27.0-33.0 pg Mean Corpuscular Hemoglobin Concent 30.9 L 32.0-36.0 g/dL Red Cell Distribution Width 15.7 H 11.0-15.5 % Platelet Count 268 130-400 K/uL Mean Platelet Volume 11.2 H 7.5-10.5 fL Nucleated Red Blood Cells 0.0 0.0-0.19 % Immature Granulocyte % (Auto) 0.3 0-1 % Neutrophils (%) (Auto) 49.0 40.0-77.0 % Lymphocytes (%) (Auto) 42.8 21.0-51.0 % Monocytes (%) (Auto) 6.6 3.0-13.0 % Eosinophils (%) (Auto) 0.9 0.0-8.0 % Basophils (%) (Auto) 0.4 0.0-5.0 % Neutrophils # (Auto) 3.4 1.8-7.7 K/uL Lymphocytes # (Auto) 2.9 1.0-4.8 K/uL Monocytes # (Auto) 0.5 0.1-1.0 K/uL Eosinophils # (Auto) 0.06 0.00-0.70 K/uL Basophils # (Auto) 0.03 0.00-0.20 K/uL Absolute Immature Granulocyte (auto 0.02 0-1 K/uL Red Blood Cell Morphology See comments Chemistry Labs: Test 01/05/25 05:17 01/05/25 04:53 01/04/25 15:32 Range/Units Whole Blood Glucose 83 # 70-110 MG/DL Sodium Level 141 136-145 mmol/L Potassium Level 3.6 3.5-5.1 mmol/L Chloride Level 105 101-111 mmol/L Carbon Dioxide Level 30 21-32 mmol/L Blood Urea Nitrogen 28 H 7-18 mg/dL Creatinine 0.9 0.5-1.0 mg/dL Glomerular Filtration Rate Calc 64 >90 mL/min Random Glucose 85 # 70-105 mg/dL Total Calcium 9.1 8.5-10.1 mg/dL Phosphorus Level 3.5 2.5-4.9 mg/dL Magnesium Level 1.80 1.80-2.40 mg/dL Troponin I High Sensitivity 42 4-50 ng/L Thyroid Stimulating Hormone (TSH) 1.46 # 0.36-3.74 uIU/mL B-Type Natriuretic Peptide 787 H 0-100 pg/mL Diagnostics / Radiology: Impression and Plan: Palpitations SSS s/p Reply dual-chamber PPM inserted on 01/12/2015 2D Echo on 06/06/2021 with an EF of 65-70% Hypertension Diabetes mellitus type 2 with nephropathy History of thalassemia minor Normal coronaries via coronary angiogram in 2014 Intolerance to beta rj therapy Palpitations The patient complains of an intermittent pulsating sensation to her left upper chest since 0230 on 01/04/2025 with no accompanying symptoms She may possibly be feeling the ventricular pacing -No frequent PVCs or PACs reported by telemetry -Further recommendations pending 2D echocardiogram SSS s/p Reply dual-chamber PPM inserted on 01/12/2015 The device has reached DREA -Consult EP Dr. Aly. Gerson -Echocardiogram to assess LV function, if a decline to less than 50%, the patient would likely need a biventricular pacemaker upgrade ATTESTATION BY PHYSICIAN I have seen and examined the patient. I reviewed the documentation, medical decision making, and treatment plan as noted by the mid-level provider above. I agree with the findings and plan of care. SUKHWINDER KAY MD, [facility] Jan 05, 2025 09:43 SUKHWINDER KAY MD Jan 05, 2025 10:01
[2025-01-05] MEDS: LoSARTan 100 MG TABLET PO SCH (09:56)
[2025-01-05] MEDS ORDERED: FURO40TA5 PO (10:06)
[2025-01-05] MEDS ORDERED: NATE120T9 PO (10:06)
[2025-01-05] MEDS ORDERED: LOSA100T59 PO (10:06)
[2025-01-05] MEDS ORDERED: METF-446 PO (10:06)
--- NOTE | 2025-01-05 10:08 | PN ---
[facility] PROGRESS NOTE Date of Service: Jan 05, 2025 Time of Service: 10:03 SUBJECTIVE: Mrs. Villegas is a 79-year-old female presented to the emergency room January 04, 2025, with history of DM type 2, HTN, Arthritis, thalassemia who presented [place] [facility] for evaluation of palpitations onset last night while she was asleep. The patient reported that she has a pacemaker that is due for battery replacement. She is patient of Dr. Goetz and was told to come to the emergency room. On arrival to ED the patient denied chest pain, back pain, shortness of breath, any other pain, problem or concern. EKG: Sinus rhythm, heart rate 80, nonspecific T abnormalities, diffuse leads. Chest x-ray: No acute finding. Troponin WNL, BNP [address] Nieto's office for interrogation of her pacemaker. In ED the patient received magnesium. ED provider requested patient be admitted with a diagnosis of palpitation, acute on chronic kidney injury, fluid overload, hyp omagnesemia, pacemaker complications for further evaluation and cardiac workup. 01/05 patient awake, following commands, not in distress, BP 160/76, afebrile, saturating normal on room air. Hemoglobin 7.6, hematocrit 24.6, platelet count of 268. Potassium level 3.6, magnesium 1.8. Chest x-ray no acute finding, Case discussed with the Cardiology, The patient complains of an intermittent pulsating sensation to her left upper chest since 0230 on 01/04/2025 with no accompanying symptoms, She may possibly be feeling the ventricular pacing, No frequent PVCs or PACs reported by telemetry. Echocardiogram requested. The device has reached DREA, we will continue to follow EP input and recommendation. We will check iron level panel, stool occult blood, CBC q.8 hours, transfuse 1 unit of PRBC if hemoglobin less than eight, if stool occult blood positive we will request GI consultation, we will start the patient on hypokalemia and hypomagnesemia protocol. REVIEW OF SYSTEMS 12-point ROS reviewed with patient. All pertinent positives mentioned above. Otherwise negative, noncontributory, non-pertinent. PHYSICAL EXAM GENERAL APPEARANCE: The patient is awake, alert, and oriented, in no acute cardiopulmonary distress. NEUROLOGICAL: Cranial nerves II-XII grossly intact. Motor is 5/5 in bilateral upper and lower extremities proximal to distal. No sensory deficits. HEENT: Face is symmetric. Pupils are equal and reactive. Extraocular movements are intact. NECK: Supple. No JVD. No thyromegaly. No submental, submandibular, pre- /postauricular, occipital or supraclavicular lymphadenopathy. CHEST: Normal chest expansion. No Telemetry. LUNGS: Absence of any rales, rhonchi or any wheezing. CARDIOVASCULAR: Regular. S1 and S2 normal. No appreciable rubs, murmurs or gallops. ABDOMEN: Soft, nontender, and nondistended. There is no rebound, voluntary guarding, or rigidity. : Deferred. No Adam. EXTREMITIES: Non-edematous and not cyanotic. No clubbing. Good capillary refill. SKIN: No skin breakdown. Vital Signs (last 8hr) Date Time Temp Pulse Resp B/P (MAP) Pulse Ox O2 Delivery O2 Flow Rate FiO2 01/05/25 08:08 98.2 73 18 160/76 96 Room Air 01/05/25 06:32 72 18 N/A Room Air 21 01/05/25 04:00 98.1 72 20 159/74 93 Room Air LABS: Laboratory: Test 01/05/25 05:17 01/05/25 04:53 01/04/25 16:51 01/04/25 15:32 Range/Units Whole Blood Glucose 83 # 70-110 MG/DL White Blood Count 7.3 4.8-10.8 K/uL Red Blood Count 4.08 4.00-5.50 MIL/uL Hemoglobin 7.6 L 12.0-16.0 g/dL Hematocrit 24.6 L 36-48 % Mean Corpuscular Volume 60.3 L 79-99 fL Mean Corpuscular Hemoglobin 18.6 L 27.0-33.0 pg Mean Corpuscular Hemoglobin Concent 30.9 L 32.0-36.0 g/dL Red Cell Distribution Width 15.7 H 11.0-15.5 % Platelet Count 268 130-400 K/uL Mean Platelet Volume 11.2 H 7.5-10.5 fL Nucleated Red Blood Cells 0.0 0.0-0.19 % Sodium Level 141 136-145 mmol/L Potassium Level 3.6 3.5-5.1 mmol/L Chloride Level 105 101-111 mmol/L Carbon Dioxide Level 30 21-32 mmol/L Blood Urea Nitrogen 28 H 7-18 mg/dL Creatinine 0.9 0.5-1.0 mg/dL Glomerular Filtration Rate Calc 64 >90 mL/min Random Glucose 85 # 70-105 mg/dL Total Calcium 9.1 8.5-10.1 mg/dL Phosphorus Level 3.5 2.5-4.9 mg/dL Magnesium Level 1.80 1.80-2.40 mg/dL Troponin I High Sensitivity 42 4-50 ng/L Thyroid Stimulating Hormone (TSH) 1.46 # 0.36-3.74 uIU/mL Urine Color LIGHT-YELLOW YELLOW Urine Appearance CLEAR CLEAR Urine pH 5.0 5.0-8.0 Urine Specific [place] 1.016 1.001-1.031 Urine Protein 30 H NEGATIVE mg/dL Urine Glucose (UA) 300 H NEGATIVE mg/dL Urine Ketones NEGATIVE NEGATIVE mg/dL Urine Occult Blood NEGATIVE NEGATIVE Urine Nitrate NEGATIVE NEGATIVE Urine Bilirubin NEGATIVE NEGATIVE mg/dL Urine Urobilinogen 0.2 0.2-1.0 mg/dL Urine Leukocyte Esterase NEGATIVE NEGATIVE [place]/uL Urine RBC 0-1 0-1 /HPF Urine WBC 0-1 0-1 /HPF Urine Squamous Epithelial Cells RARE 0-2 /HPF Urine Transitional Epithelial Cells RARE None Seen /HPF Urine Bacteria None None Seen /HPF Immature Granulocyte % (Auto) 0.3 0-1 % Neutrophils (%) (Auto) 49.0 40.0-77.0 % Lymphocytes (%) (Auto) 42.8 21.0-51.0 % Monocytes (%) (Auto) 6.6 3.0-13.0 % Eosinophils (%) (Auto) 0.9 0.0-8.0 % Basophils (%) (Auto) 0.4 0.0-5.0 % Neutrophils # (Auto) 3.4 1.8-7.7 K/uL Lymphocytes # (Auto) 2.9 1.0-4.8 K/uL Monocytes # (Auto) 0.5 0.1-1.0 K/uL Eosinophils # (Auto) 0.06 0.00-0.70 K/uL Basophils # (Auto) 0.03 0.00-0.20 K/uL Absolute Immature Granulocyte (auto 0.02 0-1 K/uL Red Blood Cell Morphology See comments B-Type Natriuretic Peptide 787 H 0-100 pg/mL Current Medications Medications (Trade) Dose Ordered Sig/Amanda Route PRN Reason Start Time Stop Time Status Last Admin Dose Admin Acetaminophen (TYLenol 325MG TAB) 650 mg Q6H PRN PO FEVER/MILD PAIN LEVEL 1-3 01/04/25 21:00 02/03/25 20:59 Acetaminophen (TYLenol 650MG SUPPOSITORY) 650 mg Q6H PRN RC FEVER / MILD PAIN 1-3 IF NPO 01/04/25 21:00 02/03/25 20:59 Atorvastatin Calcium (LIPItor 40MG) 40 mg HS PO 01/05/25 21:00 02/04/25 20:59 Dextrose (D50w) 50 ml AD PRN IV HYPOGLYCEMIA PROTOCOL 01/05/25 07:00 02/04/25 06:59 Docusate Sodium (COLace 100MG CAP) 100 mg BID PRN PO c 01/04/25 21:00 02/03/25 20:59 Famotidine (Pepcid 20mg Tab) 20 mg Q48H PO 01/04/25 21:00 02/03/25 20:59 01/04/25 21:45 20 MG Furosemide (LASix 40MG VIAL) 40 mg DAILY IV 01/05/25 09:00 02/04/25 08:59 Glucagon (Glucagon 1mg Kit) 1 mg AD PRN IM HYPOGLYCEMIA PROTOCOL 01/05/25 07:00 02/04/25 06:59 Insulin Human Regular (humuLIN R 100 UNIT/ML 3ML) INSULIN SLIDING SCAL... ACHS SQ 01/04/25 21:00 02/03/25 20:59 01/04/25 22:01 16 UNIT Ipratropium [place] (AtrovENT UD) 0.5 mg [id number] PRN IH SHORTNESS OF BREATH/WHEEZING 01/04/25 21:00 02/03/25 20:59 Labetalol HCl (TRANdate 20MG SYG) 10 mg Q2H PRN IV SBP GREATER THAN 160 01/04/25 21:00 02/03/25 20:59 Lactulose (Constulose 20gm/ 30ml Udcup) 20 gm Q6H PRN PO CONSTIPATION 01/04/25 21:00 02/03/25 20:59 Losartan Potassium (CozAAR 100MG TAB) 100 mg DAILY PO 01/05/25 09:00 7/5/25 08:59 01/05/25 09:56 100 MG Magnesium Sulfate 50 ml @ 0 mls/hr PROTOCOL IV 01/04/25 16:30 02/03/25 16:29 01/05/25 06:13 25 MLS/HR Ondansetron HCl (zoFRAN 4MG INJ) 4 mg Q6H PRN IVP NAUSEA/VOMITING 01/04/25 21:00 02/03/25 20:59 Potassium Chloride 100 ml @ 100 mls/hr AD PRN IV POTASSIUM PROTOCOL 01/05/25 07:00 02/04/25 06:59 Temazepam (restORIL 15 MG CAP) 15 mg HS PRN PO INSOMNIA/SLEEP 01/04/25 21:00 02/03/25 20:59 DIAGNOSTICS / RADIOLOGY: [ ] ASSESSMENT: Palpitations, POA Hypomagnesemia, POA Pacemaker in need of battery change, POA Acute kidney injury, GFR 50 Acute on chronic kidney disease Fluid overload, BNP 787 Anemia of chronic disease Diabetes mellitus with hyperglycemia Hypertension Arthritis Octogenarian PLAN: Hemoglobin 7.6, hematocrit 24.6, platelet count of 268. Potassium level 3.6, magnesium 1.8. Chest x-ray no acute finding Case discussed with the Cardiology, The patient complains of an intermittent pulsating sensation to her left upper chest since 0230 on 01/04/2025 with no acc ompanying symptoms, She may possibly be feeling the ventricular pacing, No frequent PVCs or PACs reported by telemetry. Echocardiogram requested. The device has reached DREA, we will continue to follow EP input and recommendation. We will check iron level panel, stool occult blood, CBC q.8 hours, transfuse 1 unit of PRBC if hemoglobin less than eight, if stool occult blood positive we will request GI consultation we will start the patient on hypokalemia and hypomagnesemia protocol. NEURO: Minimize central acting medications as possible. Fall Precautions. Well lighted room through the day and minimize interruptions through the night to prevent acute delirium. PULMONARY: Supplemental 02 as needed BiPAP as necessary, for respiratory distress Titrate Fio2 to keep Spo2 > or = 90% DuoNebs and CPT as needed IS hourly while awake for pulmonary hygiene prn Out of bed to chair as tolerated Maintain aspiration precautions at all times CARDIOVASCULAR: Follow hemodynamics. Vital signs per facility protocol GI & NUTRITION: Continue nutritional support Aspirations precautions Prokinetic agents and laxatives as needed KIDNEYS & ELECTROLYTES: Strict monitoring of intake and output Daily weights Avoid nephrotoxic agents Monitor electrolytes and replace as needed Goal urine output of 30mL/hr or 0.5mL/kg/hr Medications to be dosed according to renal function. Avoid contrast if possible ENDOCRINE: Maintain blood glucose between 100-180 at all times. Insulin sliding scale for blood glucose management Hypoglycemia and hyperglycemia protocol in place INFECTIOUS DISEASE: Trend temperature, WBC and procalcitonin level Follow cultures, deescalate antibiotics as soon as possible. Panculture if new onset fever HEMATOLOGY & COAGULATION: Monitor H&H. Keep Hgb > 7 Transfuse 1 unit of PRBC for Hgb < 7 Transfuse 1 pack of platelets of platelets < 20, 000 Watch for any signs and symptoms of bleeding SKIN: Pressure ulcer prevention per facility protocol Specialty mattress as needed ORTHO/REHAB Continue PT/OT PRN: MEDICATIONS Tylenol 650 mg po every 4 hrs for fever zofran 4 mg IV every 6 hrs for n/v Hydralazine 5 mg IV every 4 hrs systolic pressure > 160 bowel regiment: lactulose 20 gm PO BID PRN constipation Supportive measures: Continue GI and DVT prophylaxis Disposition: Pending improvement in clinical condition All questions answered time spent: > 35 min LUANN MUELLER MD Jan 05, 2025 10:08
--- NOTE | 2025-01-05 10:13 | NUR ---
HOME MEDS HOME MEDS ENTERED. NOTIFIED. PENDING RECONCILIATION.
[2025-01-05] MEDS ORDERED: PoTASSium chloRIDE 20MEQ/100ML 100 ML IV PRN (10:30)
[2025-01-05] MEDS ORDERED: hydrALAZine 20MG/ML VIAL IV PRN (10:30)
[2025-01-05] MEDS ORDERED: MAGNESIUM 2GM PREMIX 50ML 50 ML IV PRN (10:30)
[2025-01-05] MEDS ORDERED: PoTASSium chloRIDE 20MEQ ER 20 MEQ ERTAB PO PRN (10:30)
[2025-01-05] MEDS ORDERED: PoTASSium chl 10% ELIXIR 20MEQ 20 MEQ/15 ML UDCUP PO PRN (10:30)
[2025-01-05 11:46] LABS: HEMATOCRIT 25.3 % (36-48); MEAN CORPUSCULAR HEMOGLOBIN 18.6 pg (27.0-33.0); MEAN CORPUSCULAR HGB CONC 30.8 g/dL (32.0-36.0); MEAN CORPUSCULAR VOLUME 60.2 fL (79-99); RED BLOOD CELL COUNT(AUTO) 4.2 MIL/uL (4.00-5.50); RED CELL DISTRIBUTION WIDTH 15.9 % (11.0-15.5); WHITE BLOOD COUNT (AUTO) 6.5 K/uL (4.8-10.8)
--- NOTE | 2025-01-05 11:57 | HMCSR ---
APPROVED REPORT EXAM: Two-dimensional and M-mode echocardiogram with Doppler and color Doppler. INDICATION ICD: Chest discomfort 2D Dimensions RVDd3.5 cmLVEF(%)62.9 (>50%)LVED Vol(simp.)60.0 mL IVSd0.7 (0.7-1.1cm)FS(%)34 %LVES Vol(simp.)24.0 mL LVDd4.6 (3.8-5.6cm)LA (2D)5.3 (1.6-4.0cm)LVEF(%, simp.)60 % PWd1.1 (0.7-1.1cm)Ao Root(2D)3.2 (2.0-3.7cm)LA ESV INDEX (BP)45.54 mL/m2 IVSs1.1 cmLVOT diam1.9 (1.8-2.4cm) LVDs3.1 (2.5-4.0cm) PWs1.3 cm Deformation Strain Apical 4-21.1 % Apical 2-16.7 % Apical 3-17.7 % Global Strain-18.5 % M-Mode Dimensions EPSS0.6 cm LA (MM)5.0 (1.6-4.0cm) Ao Root(MM)2.8 (2.0-3.7cm) Aortic Valve AoV Vmax2.0 m/Eleazar Peak GR15.8 mmHgLVOT Vmax1.0 m/s AoV VTI0.4 mAo Mean GR8.1 mmHgLVOT VTI0.22 m LOVE (VMAX)1.50 cm2AVA (VTI) 1.6 cm2 Mitral Valve MV E Vmax68.8 cm/sDECEL Hgec017 ms MV A Vmax81.9 cm/sP 1/2 T64 ms E/A ratio0.8MVA (PHT)3.4 cm2 TDI E/E' Wqsgfb12.4E/E' Lateral8.7 Medial E' Peak V6.02 cm/sLateral E' Peak V7.95 cm/s Pulmonary Valve PV Vmax1.1 m/sPV VTI0.21 mPV Mean GR2.7 mmHg PV Peak GR5.1 mmHg Tricuspid Valve TR Vmax2.2 m/sRVSP19.8 mmHg TR Peak GR20.2 mmHg Left Ventricle The left ventricle is normal size. GLS -19.0%. There is normal left ventricular wall thickness. LVEF is 60-65%. The left ventricular diastolic function is normal. Right Ventricle The right ventricle is normal size. The right ventricular systolic function is normal. Device lead is present in the right ventricle. Atria The left atrium is moderately dilated. The right atrium size is normal. Aortic Valve The aortic valve is mildly thickened but opens well. No aortic regurgitation is present. There is no aortic valvular stenosis. Mitral Valve Mitral valve leaflets open well. Mild posterior annular calcification. There is no mitral valve regur gitation noted. There is no mitral valve stenosis. Tricuspid Valve The tricuspid valve is normal in structure. There is trace tricuspid valve regurgitation noted. Pulmonic Valve The pulmonary valve is normal in structure. There is no pulmonic valvular regurgitation. Great Vessels The aortic root is normal in size. The IVC is normal in size and collapses >50% with inspiration. Pericardium There is no pericardial effusion. Other Information Quality : Adequate Conclusion LVEF is 60-65%. GLS -19.0%.
[2025-01-05 12:00] LABS: % IRON SATURATION 12.4 % (22-44)
[2025-01-05] MEDS: NATEGLINIDE 120 MG PO SCH (14:00)
--- NOTE | 2025-01-05 15:38 | EKG ---
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
--- NOTE | 2025-01-05 17:31 | NUR ---
DR. EDIS RANDHAWA ROUNDED AT BEDSIDE. INSTRUCTED PATIENT ON TREATMENT PLAN AND OUTPATIENT SWITCH OUT OF PACEMAKER. MD INSTRUCTED PATIENT, RADHA (HIS M.A.) WILL BE CONTACTING HER TOMORROW, 01/06/25 AND GIVE HER INSTRUCTIONS FOR OUTPATIENT SWITCH OUT OF PACEMAKER. PATIENT VOICED UNDERSTANDING. NOTIFIED DR. MUELLER REGARDING DR. RANDHAWA'S RECOMMENDATIONS. TORB FOR PATIENT TO BE DISCHARGED. CONTINUE WITH SAME HOME MEDICATIONS. FOLLOW UP WITH CARDIO INSTRUCTED. ORDERS PLACED AND CARRIED OUT.
--- NOTE | 2025-01-05 17:47 | NUR ---
DISCHARGE DISCHARGE ORDERS OBTAINED FOR PATIENT TO BE DISCHARGED HOME. DISCHARGE INSTRUCTIONS GIVEN TO PATIENT AND DAUGHTER AT BEDSIDE BY CARLOS ANGULO. BOTH VOICED UNDERSTANDING. IV DISCONTINUED BY CARLOS ANGULO, CATHETER INTACT, NO S/S OF INFECTION NOTED TO AREA. PATIENT TOLERATED WELL. BANDS REMOVED. PATIENT AND DAUGHTER STATED WILL BE WAITING FOR TRANSPORTATION WHO'S ON THEIR WAY.
[2025-01-05] MEDS ORDERED: atorVAStatin 40 MG TABLET PO SCH (21:00)
--- NOTE | 2025-01-06 08:08 | DS ---
Discharge Summary Hospital Course Summary: Date of service 01/05/2025 Mrs. Villegas is a 79-year-old female presented to the emergency room January 04, 2025, with history of DM type 2, HTN, Arthritis, thalassemia who presented to [facility] for evaluation of palpitations onset last night while she was asleep. The patient reported that she has a pacemaker that is due for battery replacement. She is patient of Dr. Goetz and was told to come to the emergency room. On arrival to ED the patient denied chest pain, back pain, shortness of breath, any other pain, problem or concern. EKG: Sinus rhythm, heart rate 80, nonspecific T abnormalities, diffuse leads. Chest x-ray: No acute finding. Troponin WNL, BNP [address] Nieto's office for interrogation of her pacemaker. In ED the patient received magnesium. ED provider requested patient be admitted with a diagnosis of palpitation, acute on chronic kidney injury, fluid overload, hypomagnesemia, pacemaker complications for further evaluation and cardiac workup. 01/05 patient awake, following commands, not in distress, BP 160/76, afebrile, saturating normal on room air. Hemoglobin 7.6, hematocrit 24.6, platelet count of 268. Potassium level 3.6, magnesium 1.8. Chest x-ray no acute finding, Case discussed with the Cardiology, The patient complains of an intermittent pulsating sensation to her left upper chest since 0230 on 01/04/2025 with no acco mpanying symptoms, She may possibly be feeling the ventricular pacing, No frequent PVCs or PACs reported by telemetry. Echocardiogram requested. The device has reached DREA, we will continue to follow EP input and recommendation. We will check iron level panel, stool occult blood, CBC q.8 hours, transfuse 1 unit of PRBC if hemoglobin less than eight, if stool occult blood positive we will request GI consultation, we will start the patient on hypokalemia and hypomagnesemia protocol. Patient was evaluated by administrative support specialist, cleared to be discharged home. Follow up as an outpatient. PHYSICAL EXAM GENERAL APPEARANCE: The patient is awake, alert, and oriented, in no acute cardiopulmonary distress. NEUROLOGICAL: Cranial nerves II-XII grossly intact. Motor is 5/5 in bilateral upper and lower extremities proximal to distal. No sensory deficits. HEENT: Face is symmetric. Pupils are equal and reactive. Extraocular movements are intact. NECK: Supple. No JVD. No thyromegaly. No submental, submandibular, pre- /postauricular, occipital or supraclavicular lymphadenopathy. CHEST: Normal chest expansion. No Telemetry. LUNGS: Absence of any rales, rhonchi or any wheezing. CARDIOVASCULAR: Regular. S1 and S2 normal. No appreciable rubs, murmurs or gallops. ABDOMEN: Soft, nontender, and nondistended. There is no rebound, voluntary guarding, or rigidity. : Deferred. No Adam. EXTREMITIES: Non-edematous and not cyanotic. No clubbing. Good capillary refill. SKIN: No skin breakdown. Fire Inspector(s): Cardiology Assessment/Plan: Final diagnosis Palpitations, POA Hypomagnesemia, POA Pacemaker in need of battery change, POA Acute kidney injury, GFR 50 Acute on chronic kidney disease Fluid overload, BNP 787 Anemia of chronic disease Diabetes mellitus with hyperglycemia Hypertension Arthritis Octogenarian Discharge Instructions: Patient to be discharged home, to follow up with Cardiology as an outpatient and to return to the hospital if condition changes, patient agreed with the plan and understood the information provided. Home Medications: Reported Medications Nateglinide (Nateglinide) 120 Mg Tablet, 120 MG PO TID 01/05/25 Losartan Potassium (Losartan Potassium) 100 Mg Tablet, 100 MG PO DAILY 01/05/25 Furosemide (Furosemide) 40 Mg Tablet, 40 MG PO DAILY 01/05/25 Metformin HCl (Metformin HCl) 1,000 Mg Tablet, 1000 MG PO BIDAC 01/05/25 Discontinued Reported Medications Losartan Potassium (Losartan Potassium) 100 Mg Tablet, 100 MG PO DAILY, TAB 06/18/20 Nateglinide (Nateglinide) 120 Mg Tablet, 120 MG PO TID, TAB 06/18/20 Discontinued Scripts Cyclobenzaprine HCl (Flexeril) 10 Mg Tab, 5 MG PO BID for BACK PAIN for 7 Days, #15 TAB Prov:ANISH LIVE MD 01/06/21 Metformin HCl (Metformin HCl) 1,000 Mg Tablet, 1000 MG PO BID, #60 TAB Prov:CHUCHO BRIONES MD 01/13/15 Time spent arranging discharge: 31-60 minutes LUANN MUELLER MD Jan 06, 2025 08:08
[2025-01-06] MEDS ORDERED: LoSARTan 100 MG TABLET PO SCH (09:00)
== END 2025-01-05 18:33 | disposition home or self-care (01) ==
LOC: EDH 14:39 → INTOOBSV 18:33 → EDHIP 18:33 → 4DH 01-05 01:25
PROVIDERS: ADMIT Internal Medicine; ATTEND Internal Medicine
DX: R00.2 Palpitations (principal); E83.42 Hypomagnesemia; N17.9 Acute kidney failure, unspecified; I12.9 Hypertensive chronic kidney disease with stage 1 through stage 4 chronic kidney disease, or unspecified chronic kidney disease; E11.22 Type 2 diabetes mellitus with diabetic chronic kidney disease; N18.9 Chronic kidney disease, unspecified; E87.70 Fluid overload, unspecified; D63.8 Anemia in other chronic diseases classified elsewhere; E11.65 Type 2 diabetes mellitus with hyperglycemia; M19.90 Unspecified osteoarthritis, unspecified site; Z88.5 Allergy status to narcotic agent; Z90.49 Acquired absence of other specified parts of digestive tract; Z79.84 Long term (current) use of oral hypoglycemic drugs; Z95.0 Presence of cardiac pacemaker; Z79.899 Other long term (current) drug therapy
CPT/HCPCS: 99285; 96365; 96366 ×3; 83735 ×2; 84484 ×2; 80048 ×2; 83880; 85025; 82948 ×5; 81001; 36415 ×2; 71045; 93005 ×2; 94664; 84443; 83540; 83550; 84100; 85027 ×2; 93306; 93356; J1815 ×2; J3475 ×2; G0378 ×11; J1938